=== PATIENT | male | born 1995 | race Caucasian/White ===

== ENCOUNTER 2017-11-13 23:48 | Emergency (ER) | payer OTHER ==
[~2017-11-13] VITALS: Ht 195.6 cm; Wt 94.0 kg
[2017-11-13 23:49] VITALS: BP 135/80; PULSE 58; RESP 18; TEMP 98.7; O2SAT 99
[2017-11-14] MEDS ORDERED: PROPARACAINE HCL 0.5% OPHT SOLN 15 ML BTL EACH EYE ONE (00:15)
[2017-11-14] MEDS ORDERED: ERYTOIN10 EACH EYE (00:39)
--- NOTE | 2017-11-14 00:40 | PD ---
HPI Chief Complaint: Eye Problems/Injury Time Seen by Provider: 00:03 Travel History International Travel<30 days: No Contact w/Intl Traveler<30days: No Traveled to known affect area: No History of Present Illness HPI Patient is a 22-year-old male presenting to the emergency for evaluation of eye redness, possible retained contact lenses. Patient fell asleep last night with his contact lenses in, he does not remember taking them out. He states that his eyes have gotten more red and irritated feeling throughout the day today. He denies any visual changes, his vision is not as good as it would be if his contacts were in. He denies any pain with eye movement. He denies to crusting , tearing, headaches. Symptom onset was sudden, no alleviating factors. Symptoms are exacerbated when he rubs his eyes. [facility] Past Medical History Medical History: Denies Significant Hx Diminished Hearing: No Tetanus Vaccination: Unknown Influenza Vaccination: Yes Past Surgical History Abdominal Surgery: Yes (groin hernia repair) Tonsillectomy: Yes Social History Alcohol Use: No Tobacco Use: No Substance Use: No Allergies-Medications (Allergen,Severity, Reaction): Coded Allergies: No Known Allergies (Unverified , 11/13/17) Review of Systems Except as stated in HPI: all other systems reviewed are Neg Eyes: Positive: Redness, Foreign Body Sensation Physical Exam Narrative GENERAL: Well-developed, well-nourished, alert male. Resting comfortably in no acute distress. SKIN: Warm and dry. HEAD: Normocephalic. EYES: No scleral icterus. Mild injection bilaterally, no drainage. Fluorescein Exam did not reveal any retained foreign object, no abrasions noted. NECK: Supple, trachea midline. No JVD or lymphadenopathy. CARDIOVASCULAR: Regular rate and rhythm without murmurs, gallops, or rubs. RESPIRATORY: Breath sounds equal bilaterally. No accessory muscle use. GASTROINTESTINAL: Abdomen soft, non-tender, nondistended. MUSCULOSKELETAL: No cyanosis, or edema. BACK: Nontender without obvious deformity. No CVA tenderness. Data Data Last Documented VS Vital Signs Date Time Temp Pulse Resp B/P (MAP) Pulse Ox O2 Delivery O2 Flow Rate FiO2 11/13/17 23:49 98.7 58 18 135/80 (98) 99 Room Air Orders Orders Proparacaine 0.5% Opth Soln (Alcaine 0.5 (11/14/17 00:15) MDM Medical Decision Making Medical Screen Exam Complete: Yes Emergency Medical Condition: Yes Interpretation(s) Vital Signs Date Time Temp Pulse Resp B/P (MAP) Pulse Ox O2 Delivery O2 Flow Rate FiO2 11/13/17 23:49 98.7 58 18 135/80 (98) 99 Room Air Differential Diagnosis Retained foreign object versus conjunctivitis versus iritis versus abrasion versus other Narrative Course Patient is a 22-year-old male that presented to emergency from for evaluation of possible retained contact lenses. Fluorescein exam did not reveal any retained lens, an attempt was made to use a curet sweep the cornea to assess for contact lens. Again no lens was identified. At this time after discussing with my attending physician, be given erythromycin ointment prophylactically, he will be referred to an box folding machine operator, Dr. Sofi Randolph tomorrow. Discussed plan with father and patient. They verbalized understanding. Patient is stable for discharge. Diagnosis Primary Impression: Eye irritation Referrals: Angela Randolph MD 1 day Call the office in the morning to schedule an appointment, notify them that you in the emergency department tonight. Patient Instructions: General Instructions Additional Instructions: Follow-up with Dr. Randolph in the morning, call the office first thing to schedule an appointment. Notify her that you were in the emergency department and need to be reevaluated Use medication as directed Do not put contact lenses got into her eyes until evaluated by box folding machine operator Return to emergency department for any new or worsening symptoms Med/Other Pt SpecificInfo: Prescription(s) given Scripts Erythromycin Opth Oint (Erythromycin Opth Oint) 5 Mg/Gm Oint 1 APPLIC EACH EYE QID for Infection, #1 TUBE 0 Refills Prov: Maci Yarbrough 11/14/17 Disposition: 01 DISCHARGE HOME Condition: Stable Maci Yarbrough Nov 14, 2017 00:40
[2017-11-14] MEDS ORDERED: ERYTHROMYCIN 0.5% OPTH OINT 3.5 GM TUBO EACH EYE ONE (00:45)
== END 2017-11-14 00:58 | disposition home or self-care (01) ==
LOC: NEPD 23:48
DX: H10.029 Other mucopurulent conjunctivitis, unspecified eye (principal)
CPT/HCPCS: 99283